=== PATIENT | male | born 1965 | race Caucasian/White ===

== ENCOUNTER 2017-01-25 09:49 | Emergency (ER) | payer BC ==
[~2017-01-25] VITALS: Ht 177.8 cm; Wt 99.0 kg
[~2017-01-25 09:49] MED LIST: ACET-1138 PO; ASPI81TA28 PO; OXYC1TAB3 PO
[2017-01-25 10:05] VITALS: TEMP 37; Ht 177.8 cm; Wt 99.0 kg
[2017-01-25] MEDS ORDERED: SODIUM CHLORIDE 0.9% 1000ML 1,000 ML IV STA (10:22)
[2017-01-25] MEDS ORDERED: SODIUM CHLORIDE 0.9% 1000ML 1,000 ML IV ONE (10:22)
--- NOTE | 2017-01-25 10:22 | EMERGENCY ROOM VISIT NOTE ---
History Report prepared by Nel: Betina Cali Under the Supervision of: Dr. Van Mendoza M.D. First contact with patient: 10:11 Chief Complaint: ABDOMINAL PAIN Stated Complaint: LOWER LEFT ABD PAIN Nursing Triage Summary: pt here with llq quad x a few days. pt now notices a bump to area. pt denies any redness to area. pt states increased pain when coughing History of Present Illness The patient is a 51 year old male who presents to the Emergency Room with complaints of worsening lower abdominal pain with onset 4-5 days ago. He rates his pain as a 7/10. He has been coughing, which increases his pain. This morning , the patient noticed that he had an area of abdominal swelling. The patient is concerned about a possible hernia. Last night, he lifted a 200-pound lamp. He denies nausea, vomiting, back pain, urinary symptoms, melena, history of kidney stones, chest pain, shortness of breath, recent surgeries, history of kidney stones, history of chronic medical issues. Source of History: patient Onset: 4-5 days ago Position: abdomen Symptom Intensity: 7/10 Quality: other (abdominal pain) Timing: worsening Modifying Factors (Worsening): other (coughing) Associated Symptoms: No SOB, No back pain, No chest pain, No melena, No nausea, No urinary symptoms, No vomiting Review of Systems See HPI for pertinent positives & negatives. A total of 10 systems reviewed and were otherwise negative. Past Medical & Surgical Medical Problems: (1) Back strain (2) Chest pain Old medical records were reviewed. Nurse's notes were reviewed and I agree with. Family History FH: heart disease FHx: cancer Social History Smoking Status: Never Smoker Drug Use: none Marital Status: Housing Status: lives with family Occupation Status: employed Current/Historical Medications Scheduled Aspirin (Aspirin Ec), 81 MG PO DAILY Multivitamin (Multivitamin), 1 TAB PO DAILY Allergies Coded Allergies: No Known Allergies (Unverified , 01/25/17) Physical Exam Vital Signs Date Time Temp Pulse Resp B/P Pulse Ox O2 Delivery O2 Flow Rate FiO2 01/25/17 12:39 54 18 124/83 98 Room Air 01/25/17 11:38 56 18 138/77 97 Room Air 01/25/17 10:05 37.0 80 16 163/100 95 Room Air Physical Exam General: Non ill appearing middle age male in no acute distress. HEENT: Normal cephalic atraumatic. Pupils are equal round and reactive to light. Extraocular movements are intact. Oropharynx is pink with moist mucous membranes. No swelling of the mouth lips or tongue. Neck: Supple with a midline trachea. No meningeal signs or stiffness, no JVD or bruits. No Stridor. Chest: Clear to auscultation bilaterally. No wheezes or rhonchi. No increased work of breathing. Heart: regular rate and rhythm. Abdomen: Soft nontender, nondistended without rebound guarding or rigidity. With coughing, a hernia is felt in the left inguinal area, no redness or warmth. No significant tenderness. Extremities: No cyanosis clubbing or edema. No calf tenderness or assymetry Spine/Back. Non tender to palpation. No CVA tenderness Skin: Good turgor without rashes. Neurologic exam: Cranial nerves two through 12 are intact. Motor and sensation are intact and symmetrical throughout. : Normal testicular exam. Medical Decision & Procedures ER Provider Diagnostic Interpretation: CT results as stated below per my review and radiologist interpretation: CT OF THE ABDOMEN AND PELVIS WITH CONTRAST CLINICAL HISTORY: Left groin pain. Evaluate for hernia. COMPARISON STUDY: None. TECHNIQUE: Following IV administration of 92 mL of Optiray-320, axial images of the abdomen and pelvis were obtained from the lung bases to the proximal femurs. Images were reviewed in the axial, sagittal, and coronal planes. IV contrast was administered without complication. CT DOSE: 550.30 mGy.cm FINDINGS: Small bilateral renal calculi are noted. The largest is a 5 mm calculus within the lower pole of the right kidney. The liver, spleen, adrenal glands and pancreas are normal. There is no hydronephrosis. No ureteral calculi are present. The caliber and wall thickness of small and large bowel are normal. Note is made of a small fat-containing left inguinal hernia. The appendix is normal. There is no ascites. Skeletal structures are unremarkable. The prostate is mildly enlarged and indents the base of the bladder. IMPRESSION: 1. Small fat-containing left inguinal hernia. 2. Bilateral nephrolithiasis. No ureteral calculi or hydronephrosis. Electronically signed by: Ivan Martinez M.D. 01/25/2017 11:42 AM Dictated Date/Time: 01/25/2017 11:37 AM Laboratory Results 01/25/17 10:30 Red Blood Count 5.20, Mean Corpuscular Volume 86.0, Mean Corpuscular Hemoglobin 30.2, Mean Corpuscular Hemoglobin Concent 35.1, Mean Platelet Volume 10.2, Neutrophils (%) (Auto) 69.7, Lymphocytes (%) (Auto) 18.4, Monocytes (%) (Auto) 8.7, Eosinophils (%) (Auto) 2.4, Basophils (%) (Auto) 0.6, Neutrophils # (Auto) 5.62, Lymphocytes # (Auto) 1.48, Monocytes # (Auto) 0.70, Eosinophils # (Auto) 0.19, Basophils # (Auto) 0.05 01/25/17 10:30 Test 01/25/17 10:30 01/25/17 10:36 White Blood Count 8.06 K/uL (4.8-10.8) Red Blood Count 5.20 M/uL (4.7-6.1) Hemoglobin 15.7 g/dL (14.0-18.0) Hematocrit 44.7 % (42-52) Mean Corpuscular Volume 86.0 fL (80-100) Mean Corpuscular Hemoglobin 30.2 pg (25-34) Mean Corpuscular Hemoglobin Concent 35.1 g/dl (32-36) Platelet Count 247 K/uL (130-400) Mean Platelet Volume 10.2 fL (7.4-10.4) Neutrophils (%) (Auto) 69.7 % Lymphocytes (%) (Auto) 18.4 % Monocytes (%) (Auto) 8.7 % Eosinophils (%) (Auto) 2.4 % Basophils (%) (Auto) 0.6 % Neutrophils # (Auto) 5.62 K/uL (1.4-6.5) Lymphocytes # (Auto) 1.48 K/uL (1.2-3.4) Monocytes # (Auto) 0.70 K/uL (0.11-0.59) Eosinophils # (Auto) 0.19 K/uL (0-0.5) Basophils # (Auto) 0.05 K/uL (0-0.2) RDW Standard Deviation 40.3 fL (36.4-46.3) RDW Coefficient of Variation 12.7 % (11.5-14.5) Immature Granulocyte % (Auto) 0.2 % Immature Granulocyte # (Auto) 0.02 K/uL (0.00-0.02) Anion Gap 8.0 mmol/L (3-11) Est Creatinine Clear Calc Drug Dose 92.7 ml/min Estimated GFR () 89.0 Estimated GFR (Non- 76.8 BUN/Creatinine Ratio 14.5 (10-20) Calcium Level 8.9 mg/dl (8.5-10.1) Total Bilirubin 0.8 mg/dl (0.2-1) Direct Bilirubin 0.2 mg/dl (0-0.2) Aspartate Amino Transf (AST/SGOT) 23 U/L (15-37) Alanine Aminotransferase (ALT/SGPT) 39 U/L (12-78) Alkaline Phosphatase 104 U/L (45-117) Total Protein 6.9 gm/dl (6.4-8.2) Albumin 4.1 gm/dl (3.4-5.0) Lipase 160 U/L (73-393) Urine Color YELLOW Urine Appearance CLEAR (CLEAR) Urine pH 5.0 (4.5-7.5) Urine Specific [place] 1.009 (1.000-1.030) Urine Protein NEG (NEG) Urine Glucose (UA) NEG (NEG) Urine Ketones NEG (NEG) Urine Occult Blood NEG (NEG) Urine Nitrite NEG (NEG) Urine Bilirubin NEG (NEG) Urine Urobilinogen NEG (NEG) Urine Leukocyte Esterase NEG (NEG) Laboratory studies as stated above per my review. Medications Administered Medications (Trade) Dose Ordered Sig/[facility] Route Start Time Stop Time Status Last Admin Dose Admin Sodium Chloride 1,000 ml @ 999 mls/hr Q1H1M STAT IV 01/25/17 10:22 01/25/17 11:22 DC 01/25/17 10:22 999 MLS/HR Sodium Chloride (Nss 1000ml) 1,000 ml @ 150 mls/hr Q6H40M ONCE IV 01/25/17 10:22 01/25/17 12:57 DC 01/25/17 10:22 150 MLS/HR ED Course 1013: Past medical records reviewed. The patient was evaluated in room A10, and a complete history and physical examination were performed. 1022: Sodium Chloride 1000 ml @ 150 mls/hr IV, Sodium Chloride 1000 ml @ 999 mls /hr IV 1215: Upon reevaluation, the patient is doing well. I discussed the results and treatment plan with the patient. He verbalized agreement of the treatment plan. The patient was discharged home. Medical Decision Differentials include, but are not limited to; hernia, bowel obstruction, infection, diverticulitis. This patient is a 51-year-old male comes in with left groin bulging intermittently. He has been coughing lately also did some heavy lifting yesterday when helping somebody move. On exam, he does have a hernia felt with coughing. There is no redness or warmth or tenderness or anything to suggest incarceration. IV access was established and blood work was obtained has no white count or fever to suggest infection. He has no acute electrolyte or metabolic abnormalities. I did a CAT scan and there is a small fat-containing left inguinal hernia. I encouraged him to have close follow-up with either his doctor or surgeon . our case management team is going to help him getting with a surgeon within the next couple days. He will likely need elective repair at some point. He should avoid straining. Return if: Increasing pain or swelling , redness or warmth, vomiting, any new problems or concerns. He was happy with the plan and discharged. Impression Primary Impression: Left inguinal hernia Scribe Attestation The scribe's documentation has been prepared under my direction and personally reviewed by me in its entirety. I confirm that the note above accurately reflects all work, treatment, procedures, and medical decision making performed by me. Departure Information Dispostion Home / Self-Care Referrals Bertrand Negro M.D. (PCP) Forms Call Back Authorization, HOME CARE DOCUMENTATION FORM, IMPORTANT VISIT INFORMATION Patient Instructions My [facility] Additional Instructions Rest. Avoid heavy lifting or straining. Return if increasing pain, worsening symptoms, increasing swelling, redness or warmth, any new problems or concerns Follow-up with your doctor on Thursday and or surgeon this week (Dr. Sepulveda)
[2017-01-25] MEDS ORDERED: OPTIRAY 320 IV PRN (10:30)
[2017-01-25] MEDS ORDERED: MULT-506 PO (10:39)
[2017-01-25 10:54] LABS: URINE APPEARANCE CLEAR (CLEAR); URINE BILIRUBIN NEG (NEG); URINE COLOR YELLOW; URINE NITRITE NEG (NEG); URINE SPECIFIC GRAVITY 1.009 (1.000-1.030); UROBILINOGEN NEG (NEG)
[2017-01-25 10:55] LABS: MANUAL MICROSCOPIC REQUIRED? NO; REVIEW REQ? NO
[2017-01-25 11:02] LABS: BASO % 0.6 %; BASO ABS # 0.05 K/uL (0-0.2); COMPLETE YES; EOS % 2.4 %; HEMATOCRIT 44.7 % (42-52); IG% 0.2 %; LYMPH % 18.4 %; LYMPH ABS # 1.48 K/uL (1.2-3.4); MEAN CORPUSCULAR HEMOGLOBIN 30.2 pg (25-34); MEAN CORPUSCULAR HGB CONC 35.1 g/dl (32-36); MEAN PLATELET VOLUME 10.2 fL (7.4-10.4); MONO % 8.7 %; NEUT % 69.7 %; PLATELET COUNT 247 K/uL (130-400); WHITE BLOOD COUNT 8.06 K/uL (4.8-10.8)
[2017-01-25 11:10] LABS: BUN/CREATININE RATIO 14.5 (10-20); CALCIUM 8.9 mg/dl (8.5-10.1); CREATININE 1.1 mg/dl (0.60-1.40); POTASSIUM 3.8 mmol/L (3.5-5.1)
--- NOTE | 2017-01-25 11:44 | DIAGNOSTIC IMAGING REPORT ---
CT OF THE ABDOMEN AND PELVIS WITH CONTRAST CLINICAL HISTORY: Left groin pain. Evaluate for hernia. COMPARISON STUDY: None. TECHNIQUE: Following IV administration of 92 mL of Optiray-320, axial images of the abdomen and pelvis were obtained from the lung bases to the proximal femurs. Images were reviewed in the axial, sagittal, and coronal planes. IV contrast was administered without complication. CT DOSE: 550.30 mGy.cm FINDINGS: Small bilateral renal calculi are noted. The largest is a 5 mm calculus within the lower pole of the right kidney. The liver, spleen, adrenal glands and pancreas are normal. There is no hydronephrosis. No ureteral calculi are present. The caliber and wall thickness of small and large bowel are normal. Note is made of a small fat-containing left inguinal hernia. The appendix is normal. There is no ascites. Skeletal structures are unremarkable. The prostate is mildly enlarged and indents the base of the bladder. IMPRESSION: 1. Small fat-containing left inguinal hernia. 2. Bilateral nephrolithiasis. No ureteral calculi or hydronephrosis. Electronically signed by: Ivan Martinez M.D. 01/25/2017 11:42 AM Dictated Date/Time: 01/25/2017 11:37 AM
[2017-01-25 12:39] VITALS: BP 124/83; PULSE 54; O2SAT 98
== END 2017-01-25 12:40 | disposition home or self-care (01) ==
LOC: C.EDB 09:50 → C.EDA 12:40
DX: K40.90 Unilateral inguinal hernia, without obstruction or gangrene, not specified as recurrent (principal); R05 Cough; N20.0 Calculus of kidney; Z79.82 Long term (current) use of aspirin

== ENCOUNTER 2017-09-13 22:13 | Emergency (ER) | payer BC ==
[~2017-09-13] VITALS: Ht 177.8 cm; Wt 98.6 kg
[~2017-09-13 22:13] MED LIST changes: -ACET-1138 PO; +MULT-506 PO; -OXYC1TAB3 PO
[2017-09-13 22:15] VITALS: TEMP 37; Ht 177.8 cm; Wt 98.6 kg
--- NOTE | 2017-09-13 22:36 | EMERGENCY ROOM VISIT NOTE ---
History Report prepared by Nel: Farooq Menjivar Under the Supervision of: Dr. Ziyad Lester M.D. First contact with patient: 22:20 Chief Complaint: THROAT PAIN/INJURY Stated Complaint: DIFFCULTY SWOLLOWING, LUMP IN THROAT History of Present Illness The patient is a 51 year old male who presents to the Emergency Room with complaints of constant, right-sided, throat discomfort beginning 1.5 weeks ago. The patient states it feels like something in his neck is swollen. He reports his discomfort increases when he tries to go to sleep. The patient notes he cannot bend his neck or look down without becoming short of breath. He states the only way he can sleep is if he watches TV until his body eventually makes him fall sleep. The patient reports it feels like the oncoming of a sinus infection, but he does not show any symptoms. He notes he can eat and drink without difficulty, but he will occasionally choose not to eat something because he does not want to swallow it. The patient denies eating animal bones, eating anything out of the ordinary, fevers, chills, and abdominal pain. Source of History: patient Onset: 1.5 weeks ago Position: throat (right-sided) Timing: constant Modifying Factors (Worsening): other (looking down) Associated Symptoms: + SOB, No fevers, No chills, No abdominal pain Note: Denies: eating animal bones, eating anything out of the ordinary, Review of Systems All systems have been listed, reviewed, and are negative other than those previously mentioned. Please see Additional Medical History Sheet. Past Medical & Surgical Medical Problems: (1) Back strain (2) Chest pain Family History FH: heart disease FHx: cancer Social History Smoking Status: Never Smoker Drug Use: none Marital Status: Housing Status: lives with family Occupation Status: employed Current/Historical Medications Scheduled Aspirin (Aspirin Ec), 81 MG PO DAILY Prednisone (Prednisone), 20 MG PO BID Allergies Coded Allergies: No Known Allergies (Unverified , 09/13/17) Physical Exam Vital Signs Date Time Temp Pulse Resp B/P (MAP) Pulse Ox O2 Delivery O2 Flow Rate FiO2 09/14/17 00:03 60 18 139/85 96 Room Air 09/13/17 22:44 97 Room Air 09/13/17 22:15 37.0 77 20 166/97 97 Room Air Physical Exam GENERAL: Patient awake, alert, oriented x 3. Patient follows commands. Patient does not appear toxic. Patient is adequately hydrated and well- nourished. SKIN: No erythema, pallor, cyanosis or rash HEENT: Normal head, pupils equal, reactive to light and accommodation. Ears normal. Oral cavity and posterior pharynx appear normal with no erythema, swelling, or puss noted. Neck: Left sided cervical adenopathy. No cervical adenopathy palpated on the right side, no neck vein distention. LUNGS: Clear to auscultation. No wheezes, no rales, no rhonchi. HEART: No murmurs. No gallops. No rubs ABDOMEN: Soft and nontender. No masses, no rebound, no hepatomegaly or splenomegaly. NEUROLOGIC: Cranial nerves II-XII within normal limits. No gross motor sensory function deficits. Medical Decision & Procedures Laboratory Results 09/13/17 23:25 Red Blood Count 5.54, Mean Corpuscular Volume 85.0, Mean Corpuscular Hemoglobin 29.6, Mean Corpuscular Hemoglobin Concent 34.8, Mean Platelet Volume 9.9, Neutrophils (%) (Auto) 61.9, Lymphocytes (%) (Auto) 24.2, Monocytes (%) (Auto) 10.8, Eosinophils (%) (Auto) 2.1, Basophils (%) (Auto) 0.6, Neutrophils # (Auto ) 4.92, Lymphocytes # (Auto) 1.93, Monocytes # (Auto) 0.86, Eosinophils # (Auto ) 0.17, Basophils # (Auto) 0.05 09/13/17 23:25 Test 09/13/17 23:25 White Blood Count 7.96 K/uL (4.8-10.8) Red Blood Count 5.54 M/uL (4.7-6.1) Hemoglobin 16.4 g/dL (14.0-18.0) Hematocrit 47.1 % (42-52) Mean Corpuscular Volume 85.0 fL (80-100) Mean Corpuscular Hemoglobin 29.6 pg (25-34) Mean Corpuscular Hemoglobin Concent 34.8 g/dl (32-36) Platelet Count 248 K/uL (130-400) Mean Platelet Volume 9.9 fL (7.4-10.4) Neutrophils (%) (Auto) 61.9 % Lymphocytes (%) (Auto) 24.2 % Monocytes (%) (Auto) 10.8 % Eosinophils (%) (Auto) 2.1 % Basophils (%) (Auto) 0.6 % Neutrophils # (Auto) 4.92 K/uL (1.4-6.5) Lymphocytes # (Auto) 1.93 K/uL (1.2-3.4) Monocytes # (Auto) 0.86 K/uL (0.11-0.59) Eosinophils # (Auto) 0.17 K/uL (0-0.5) Basophils # (Auto) 0.05 K/uL (0-0.2) RDW Standard Deviation 39.5 fL (36.4-46.3) RDW Coefficient of Variation 12.7 % (11.5-14.5) Immature Granulocyte % (Auto) 0.4 % Immature Granulocyte # (Auto) 0.03 K/uL (0.00-0.02) Anion Gap 10.0 mmol/L (3-11) Est Creatinine Clear Calc Drug Dose 87.7 ml/min Estimated GFR () 83.5 Estimated GFR (Non- 72.0 BUN/Creatinine Ratio 11.5 (10-20) Calcium Level 8.9 mg/dl (8.5-10.1) Total Bilirubin 1.0 mg/dl (0.2-1) Aspartate Amino Transf (AST/SGOT) 25 U/L (15-37) Alanine Aminotransferase (ALT/SGPT) 38 U/L (12-78) Alkaline Phosphatase 109 U/L (45-117) Total Protein 7.7 gm/dl (6.4-8.2) Albumin 4.2 gm/dl (3.4-5.0) Globulin 3.5 gm/dl (2.5-4.0) Albumin/Globulin Ratio 1.2 (0.9-2) Chemistry Specimen Hemolysis Laboratory results as stated above per my review. Medications Administered Medications (Trade) Dose Ordered Sig/Tere Route Start Time Stop Time Status Last Admin Dose Admin Dexamethasone Sodium Phosphate (Dexamethasone Inj Pf) 10 mg NOW ONCE IV 09/13/17 23:30 09/13/17 23:31 DC 09/13/17 23:36 10 MG Procedure Procedure: Fiberoptic Laryngoscopy The patient was anesthetized with lidocaine and Afrin. The first attempt was through the right naris. The patient was not able to tolerate it, so another attempt was made through the left naris. This time the patient was able to tolerate it a little better, but it was not able to be completed due to minor bleeding. The right naris was tried again, and it was successful. No masses or lesions were noted. The patient feels he has more swelling following the procedure. He was asked to drink a cup of water once the scope was removed. The patient states he could not, Decadron was then ordered. ED Course 2220: Past medical records reviewed. The patient was evaluated in room B02. A complete history and physical examination was performed. 2243: Ordered Lidocaine HCl 4ml .ROUTE 2311: A fiberoptic laryngoscopy was performed. Please refer to the procedure note for more information. 2330: Ordered Dexamethasone Sodium Phosphate 10mg IV 2352: Upon reevaluation, the patient appeared to have improvement of his symptoms. I discussed today's findings with him. He verbalized agreement of the treatment plan. The patient was discharged home. Medical Decision I considered multiple diagnoses including: cervical adenopathy, pharyngitis, globus hystericus, mononucleosis, neoplasm. The patient is here with a feeling of something in his throat for weeks. He denies any unusual ingestions including chicken or fish bones. Symptoms were worse today.The patient has slight submandibular adenopathy on the left but none on the right. Rapid strep test was negative. White count was not elevated. Fiberoptic laryngoscopy was performed but no pathology was identified. The patient initially complained of worsening swelling but later noted significant improvement. Patient did have slight epistaxis from the left nares which stopped without treatment. The patient was able to drink and swallow water prior to discharge. The patient most likely has some swelling of his lymph nodes. His white count is not elevated. He will be placed on a short course of steroids. I encouraged him to follow-up with his family physician and possibly ENT if necessary. Impression Primary Impression: Pharyngeal swelling Scribe Attestation The scribe's documentation has been prepared under my direction and personally reviewed by me in its entirety. I confirm that the note above accurately reflects all work, treatment, procedures, and medical decision making performed by me. Departure Information Dispostion Home / Self-Care Prescriptions Prednisone (Prednisone) 20 Mg Tab 20 MG PO BID for 5 Days, #10 TAB Prov: Ziyad Lester M.D. 09/14/17 Referrals Bertrand Negro M.D. (PCP) Forms HOME CARE DOCUMENTATION FORM, IMPORTANT VISIT INFORMATION, WORK / SCHOOL INSTRUCTIONS Patient Instructions My [facility] Additional Instructions 20 mg of prednisone twice a day for 5 days. Follow-up with Dr. Saini this week. Return here sooner if you are having difficulty swallowing or breathing.
[2017-09-13] MEDS ORDERED: LIDOCAINE 4% W/AFRIN NASAL SOLN 4ML ONE (22:43)
[2017-09-13] MEDS ORDERED: DEXAMETHASONE **PF** INJ 10 MG/ML VIAL IV ONE (23:30)
[2017-09-13 23:45] LABS: BASO % 0.6 %; BASO ABS # 0.05 K/uL (0-0.2); COMPLETE YES; EOS % 2.1 %; HEMATOCRIT 47.1 % (42-52); IG% 0.4 %; LYMPH % 24.2 %; LYMPH ABS # 1.93 K/uL (1.2-3.4); MEAN CORPUSCULAR HEMOGLOBIN 29.6 pg (25-34); MEAN CORPUSCULAR HGB CONC 34.8 g/dl (32-36); MEAN PLATELET VOLUME 9.9 fL (7.4-10.4); MONO % 10.8 %; NEUT % 61.9 %; PLATELET COUNT 248 K/uL (130-400); RED BLOOD COUNT 5.54 M/uL (4.7-6.1); WHITE BLOOD COUNT 7.96 K/uL (4.8-10.8)
[2017-09-14 00:03] VITALS: BP 139/85; PULSE 60; O2SAT 96
[2017-09-14 00:07] LABS: BUN/CREATININE RATIO 11.5 (10-20); CALCIUM 8.9 mg/dl (8.5-10.1); CREATININE 1.16 mg/dl (0.60-1.40); POTASSIUM 3.7 mmol/L (3.5-5.1)
[2017-09-14] MEDS ORDERED: PRED20TA PO (00:09)
[2017-09-14 00:13] LABS: ALB/GLOB RATIO 1.2 (0.9-2)
== END 2017-09-14 00:43 | disposition home or self-care (01) ==
LOC: C.EDB 22:14
DX: J39.2 Other diseases of pharynx (principal); Z79.82 Long term (current) use of aspirin

== ENCOUNTER → 2017-10-07 | Outpatient (CLI) | payer BC ==
[~2017-10-07] MED LIST changes: -MULT-506 PO
[2017-10-07 13:39] LABS: BLOOD UREA NITROGEN 18 mg/dl (7-18); BUN/CREATININE RATIO 16.3 (10-20); CALCIUM 9.2 mg/dl (8.5-10.1); CARBON DIOXIDE 27 mmol/L (21-32); CHLORIDE 106 mmol/L (98-107); CHOLESTEROL 199 mg/dl (0-200); CREATININE 1.09 mg/dl (0.60-1.40); GLUCOSE 104 mg/dl (70-99); POTASSIUM 3.9 mmol/L (3.5-5.1); SODIUM 140 mmol/L (136-145)
[2017-10-07 13:42] LABS: CHOLESTEROL/HDL RATIO 2.4; HDL CHOLESTEROL 84 mg/dl; TRIGLYCERIDES 43 mg/dl (0-150); VERY LOW DENSITY LIPOPROT CALC 9 mg/dl
== END | disposition home or self-care (01) ==
LOC: C.LABSPEC 12:20
PROVIDERS: ATTEND Internal Medicine
DX: Z00.01 Encounter for general adult medical examination with abnormal findings (principal); Z11.59 Encounter for screening for other viral diseases